=== PATIENT | female | born 1980 | race Caucasian/White ===

== ENCOUNTER 2021-09-25 05:38 | Emergency (ER) | payer MEDICARE, SELFPAY ==
[2021-09-25] MEDS ORDERED: Lorazepam 2 MG/ML VIAL ONE (05:46)
== END 2021-09-25 08:40 | disposition home or self-care (01) ==
LOC: MADERS 05:38
DX: F41.0 Panic disorder [episodic paroxysmal anxiety] (principal); F45.8 Other somatoform disorders
CPT/HCPCS: 93005; 96374; J2060